=== PATIENT | male | born 1965 ===

== ENCOUNTER → 2017-09-26 | Emergency (ER) | payer OTHER ==
[~2017-09-26] VITALS: Ht 180.3 cm; Wt 99.8 kg
== END | disposition left against medical advice (07) ==
LOC: ER 10:26
DX: Z53.20 Procedure and treatment not carried out because of patient's decision for unspecified reasons (principal)

== ENCOUNTER 2019-11-05 13:30 | Emergency (ER) | payer OTHER ==
[~2019-11-05] VITALS: Ht 180.3 cm; Wt 99.8 kg
[2019-11-05] MEDS ORDERED: LIPITOR20 MG (13:41)
== END 2019-11-05 14:53 | disposition home or self-care (01) ==
LOC: ER 13:30
DX: H66.91 Otitis media, unspecified, right ear (principal)

== ENCOUNTER 2020-02-19 08:42 | Emergency (ER) | payer OTHER ==
[~2020-02-19] VITALS: Ht 180.3 cm; Wt 102.1 kg
[~2020-02-19 08:42] MED LIST: LIPITOR20 MG
== END 2020-02-19 10:33 | disposition home or self-care (01) ==
LOC: ER 08:42
DX: M25.511 Pain in right shoulder (principal)

== ENCOUNTER 2022-03-30 17:06 | Emergency (ER) | payer OTHER ==
[~2022-03-30] VITALS: Ht 180.3 cm; Wt 108.9 kg
[2022-03-30] MEDS ORDERED: ANTIFUNGAL113 GM TOP (19:42)
== END 2022-03-30 20:01 | disposition home or self-care (01) ==
LOC: ER 17:06
DX: B35.6 Tinea cruris (principal); R21 Rash and other nonspecific skin eruption; Z91.013 Allergy to seafood